=== PATIENT | female | born 1985 | race Two or more races ===

== ENCOUNTER → 2020-06-19 | Outpatient (CLI) | payer OTHER | LOC: LAB 11:42 | PROVIDERS: ATTEND Surgery | DX: Z01.812 Encounter for preprocedural laboratory examination (principal); L72.3 Sebaceous cyst; Z20.822 Contact with and (suspected) exposure to COVID-19 | CPT/HCPCS: U0003; U0005 ==

== ENCOUNTER → 2020-06-22 | Day surgery (SDC) | payer OTHER ==
[~2020-06-22] MED LIST: LIDOCAINE 1%/EPI 1:100,000 20 ML VIAL. INJ ONE
[2020-06-22 07:47] VITALS: BP 122/75
--- NOTE | 2020-06-22 08:27 | PDOC4 ---
Operative Note Operative Note Date: June 22, 2020 at 825 Preoperative diagnosis: Left upper back mass Postoperative diagnosis: Same Procedure: Excision of left upper back mass Surgeon: Geo Specimen: Back mass Dictation: Patient is 35-year-old female complaining of a painful mass in her left upper back and subcutaneous space. Procedure of excision was explained to the patient detail risk-benefit were also discussed including bleeding infection alternatives this procedure also discussed with patient who seemed to understand and gave a verbal written consent to have the procedure performed. Patient was placed in the prone positioning the upper back was prepped and draped usual sterile fashion using ChloraPrep. An area around the mass was injected with 1% lidocaine with epinephrine once this was anesthetized elliptical incision was made with 15 blade scalpel approximately 2 cm incision. Subcutaneous mass was excised sharply with about 1 cm in size. The wound was then closed in a single layer 4-0 subcuticular Monocryl Mastisol Steri-Strips and island dressing were applied. Patient tolerated procedure well was discharged home in stable condition all sponge instrument needle counts listed as correct estimated blood loss less than 5 mL. AMADOR SINHA MD Jun 22, 2020 08:27
--- NOTE | 2020-06-22 08:28 | DISCH ---
DISCHARGE INSTRUCTIONS Condition on Discharge Condition on Discharge: Stable Activity After Discharge Activity Instructions for Disc: Activity as tolerated Other activity instructions: May shower in 24 hours Diet after Discharge Diet after Discharge: Regular Wound Incision Care Other wound/incision instructi: May shower in 24 hours Contacting the after DC Call your doctor for: If your condition worsens Follow-Up Follow up with: Dr. Sinha in 2 weeks AMADOR SINHA MD Jun 22, 2020 08:28
--- NOTE | 2020-06-25 19:15 | PATHOLOGY ---
[facility] Accession Number: [id number] . 01 Material submitted: . thigh - RIGHT THIGH MASS. Modifiers: right . 01 Clinical history: . RIGHT THIGH MASS EXCISION . 02 Diagnosis: Segments of fibroadipose tissue, right thigh mass excision: - Lipoma. (PRATIK:rian; 06/25/2020) R 06/25/2020 1605 Local . 02 Comment: There is no evidence of malignancy. (RPATIKM:rian; 06/25/2020) . 02 Electronically signed: . Nestor Paredes MD, Pathologist NPI- [id number] . 01 Gross description: . Fixative: Formalin Labeled: Right thigh mass Specimen received: Multiple fragments of yellow-soto lobulated fibroadipose tissue Dimensions: 3.6 x 3.0 x 1.0 cm in aggregate External surface: Yellow-soto and lobulated Cut surface: Yellow-soto lobulated . The specimen is entirely submitted in A1-A2. [place] [place] [facility] 06/24/2020 0841 Local . 02 Pathologist provided ICD-10: D17.23 . 02 CPT . 939520 Specimen Comment: A courtesy copy of this report has been sent to [phone] Specimen Comment: Report sent to Performed at: 01 [facility] [address] [facility] [address], [place] [id number] MD Chucho Velasco MD Phone: [phone] Performed at: 02 [facility] [address] [place], [place] [id number] MD Nestor Paredes MD Phone: [phone]
--- NOTE | 2020-06-26 14:20 | PATHOLOGY ---
[facility] Accession Number: [id number] . 01 Material submitted: . back - LEFT BACK MASS. Modifiers: left . 02 Diagnosis: Skin and subcutaneous tissue, left back mass: - Resolving hypertrophic scar. (JPM:clifford; 06/26/2020) S 06/26/2020 0937 Local . 02 Comment: There is no evidence of malignancy. (JPM:clifford; 06/26/2020) . 02 Electronically signed: . Nestor Paredes MD, Pathologist NPI- [id number] . 01 Gross description: . Received in formalin labeled "Chloe Navarrete, left back mass" is an unoriented ellipse of skin measuring 1.5 x 1.3 x 0.5 cm. The skin surface displays a soto-brown possible cyst measuring 0.4 x 0.3 cm. The margin is inked and the specimen is sectioned into 4 pieces. The specimen is submitted entirely in A1-A2, with the tips in A2. Also present in the container is a separate fragment of yellow-soto soft tissue measuring 0.5 x 0.3 x 0.2 cm, which is submitted without sectioning in A3. ([facility]; 06/24/2020) SYC/SYC 06/24/2020 0844 Local . 02 Pathologist provided ICD-10: L91.0 . 02 CPT . 747621 Specimen Comment: A courtesy copy of this report has been sent to [phone] Specimen Comment: Report sent to Performed at: [address] [id number] [facility] [address], [place], [place] [id number] MD Chucho Velasco MD Phone: [phone] Performed at: 02 [facility] [address] [place], [place] [id number] MD Nestor Paredes MD Phone: [phone]
== END | disposition home or self-care (01) ==
LOC: SURG 06:56
PROVIDERS: ATTEND Surgery
DX: R22.2 Localized swelling, mass and lump, trunk (principal); L91.0 Hypertrophic scar; L72.3 Sebaceous cyst; Z98.890 Other specified postprocedural states
CPT/HCPCS: 11401; J3490